=== PATIENT | male | born 1950 | race Caucasian/White ===

== ENCOUNTER 2019-11-10 11:18 | Inpatient (IN) | payer MEDICARE ==
[~2019-11-10] VITALS: Ht 188 cm; Wt 84.0 kg
[2019-11-10] MEDS ORDERED: diatr meglu/diatrizoate 30ml oral sol.-(3 dose) bottle PO SCH (11:35)
[2019-11-10] MEDS ORDERED: normal saline 1000ML IV soln IVB ONE (11:35)
[2019-11-10] MEDS ORDERED: ondansetron/PF 4mg/2ml inj IV ONE (11:35)
[2019-11-10] MEDS: morphine 4 MG/ML inj SYRINge IV PRN ×2 (12:09→18:08)
[2019-11-10 12:14] LABS: BASOPHILS # (AUTO) 0.1 X10'3 (0-0.2); BASOPHILS % (AUTO) 0.6 % (0-1); EOSINOPHILS # (AUTO) 0.1 X10'3 (0-0.9); EOSINOPHILS % (AUTO) 0.7 % (0-6); HEMATOCRIT 42.4 % (42.0-52.0); HEMOGLOBIN 14.7 g/dl (14.0-17.9); LYMPHOCYTES # (AUTO) 1.2 X10'3 (1.1-4.8); LYMPHOCYTES % (AUTO) 10.9 % (21-51); MEAN CORPUSCULAR HEMOGLOBIN 29.6 PG (27.0-31.0); MEAN CORPUSCULAR HGB CONC 34.7 g/dL (33.0-36.5); MEAN CORPUSCULAR VOLUME 85.2 FL (78-98); MEAN PLATELET VOLUME 8.8 FL (7.4-10.4); MONOCYTES # (AUTO) 0.9 X10'3 (0-0.9); MONOCYTES % (AUTO) 8.3 % (2-12); NEUTROPHILS # (AUTO) 8.7 X10'3 (1.8-7.7); NEUTROPHILS % (AUTO) 79.5 % (42-75); PLATELET COUNT 249 X10'3 (140-440); RED BLOOD COUNT 4.98 X10'6 (4.70-6.10); RED CELL DISTRIBUTION WIDTH 13.3 % (11.5-14.5); WHITE BLOOD COUNT 10.9 X10'3 (4.5-11.0)
--- NOTE | 2019-11-10 12:26 | NUR ---
Per pt, he has had oral gastrografin previously without allergic reaction.
[2019-11-10 12:28] LABS: ALANINE AMINOTRANSFERASE 50 U/L (12-78); ALBUMIN 3.8 G/DL (3.4-5.0); ALBUMIN/GLOBULIN RATIO 0.9 (1.1-1.5); ALKALINE PHOSPHATASE 96 IU/L (46-116); ANION GAP 8 (8-16); ASPARTATE AMINO TRANSFERASE 28 U/L (10-37); BLOOD UREA NITROGEN 13 MG/DL (7-18); BUN/CREATININE RATIO 14.9 (5.4-32.0); CALCIUM 9.1 MG/DL (8.5-10.1); CHLORIDE 100 MMOL/L (99-107); CREATININE 0.87 MG/DL (0.60-1.10); GLUCOSE 157 MG/DL (70-104); LIPASE 164 U/L (73-393); SODIUM 136 MMOL/L (135-145); TOTAL CARBON DIOXIDE 27.9 MMOL/L (24-32); eGFR 87 ML/MIN
[2019-11-10] MEDS: diatr meglu/diatrizoate 30ml oral sol.-(3 dose) bottle PO SCH ×3 (14:49→16:37)
--- NOTE | 2019-11-10 14:50 | NUR ---
PT GIVEN 1ST DOSE GASTROVIEW VIA NGT
[2019-11-10] MEDS ORDERED: NO HOME MEDS (15:13)
[2019-11-10] MEDS ORDERED: potassium Cl 20 mEq SR tablet PO PRN ×2 (16:35)
[2019-11-10] MEDS ORDERED: bisacodyl 10mg suppository rectal RC PRN (16:35)
[2019-11-10] MEDS ORDERED: acetaminophen 650mg rectal suppository RC PRN (16:35)
[2019-11-10] MEDS ORDERED: potassium CL 10mEq/100ml bag 100 ML IV PRN ×2 (16:35)
[2019-11-10] MEDS ORDERED: acetaminophen 325mg tablet PO PRN (16:35)
[2019-11-10] MEDS ORDERED: magnesium 2GM in 50ml NS 50 ML IV PRN (16:35)
[2019-11-10] MEDS ORDERED: HYDROmorphone inj. 0.5 MG/0.5 ML DISP.SYRIN IV PRN (16:35)
[2019-11-10] MEDS ORDERED: magnesium Cl slow-release 64mg tablet PO PRN (16:35)
[2019-11-10] MEDS ORDERED: magnesium 4gm in 100ml NS 100 ML IV PRN (16:35)
[2019-11-10] MEDS ORDERED: magnesium hydroxide 30ml (MOM) UD suspension PO PRN (16:35)
[2019-11-10] MEDS ORDERED: metoclopramide 5 mg/ml inj IV PRN (16:35)
[2019-11-10] MEDS ORDERED: ondansetron/PF 4mg/2ml inj IV PRN (16:35)
[2019-11-10] MEDS ORDERED: mag hydrox/Alum hydrox/simeth 30ml oral suspension PO PRN (16:35)
[2019-11-10] MEDS ORDERED: iohexol 300mg/ml 100ml inj. ONE (16:49)
[2019-11-10] MEDS ORDERED: diatrozoate meglu/diatrozoate sod (37% iodine) 120ML oral solution PO ONE (17:20)
[2019-11-10] MEDS ORDERED: diatr meglu/diatrizoate 30ml oral sol.-(3 dose) bottle PO ONE (17:30)
--- NOTE | 2019-11-10 17:36 | NUR ---
Pt. To CT
[2019-11-10 18:00] VITALS: BP 147/86
[2019-11-10] MEDS: pantoprazole 40 MG vial IV SCH (18:07)
[2019-11-10] MEDS: normal saline 1000ml 1,000 ML IV SCH (18:07)
[2019-11-10] MEDS: methylnaltrexone br 12mg/0.6ml inj***SubQ only SQ SCH (18:41)
[2019-11-10] MEDS: K and/or MAG REPLACEMENT MC SCH (20:00)
[2019-11-11] VITALS: BP 128/74
[2019-11-11] MEDS: HYDROmorphone 1 mg/ml syringe IV PRN ×3 (02:31→16:16)
[2019-11-11] MEDS: normal saline 1000ml 1,000 ML IV SCH ×3 (02:32→14:58)
[2019-11-11 05:22] LABS: BASOPHILS # (AUTO) 0.1 X10'3 (0-0.2); BASOPHILS % (AUTO) 0.6 % (0-1); EOSINOPHILS # (AUTO) 0.3 X10'3 (0-0.9); EOSINOPHILS % (AUTO) 3.7 % (0-6); HEMATOCRIT 38.7 % (42.0-52.0); HEMOGLOBIN 13.2 g/dl (14.0-17.9); LYMPHOCYTES # (AUTO) 1.5 X10'3 (1.1-4.8); LYMPHOCYTES % (AUTO) 17.2 % (21-51); MEAN CORPUSCULAR HEMOGLOBIN 29.1 PG (27.0-31.0); MEAN CORPUSCULAR HGB CONC 34.1 g/dL (33.0-36.5); MEAN CORPUSCULAR VOLUME 85.4 FL (78-98); MEAN PLATELET VOLUME 8.8 FL (7.4-10.4); MONOCYTES % (AUTO) 11.1 % (2-12); NEUTROPHILS # (AUTO) 5.9 X10'3 (1.8-7.7); NEUTROPHILS % (AUTO) 67.4 % (42-75); PLATELET COUNT 229 X10'3 (140-440); RED BLOOD COUNT 4.53 X10'6 (4.70-6.10); WHITE BLOOD COUNT 8.8 X10'3 (4.5-11.0)
--- NOTE | 2019-11-11 06:25 | NUR ---
Problems reprioritized. Patient report given, questions answered & plan of care reviewed with Christina PAK.
[2019-11-11 06:44] LABS: ALANINE AMINOTRANSFERASE 65 U/L (12-78); ALBUMIN 3.1 G/DL (3.4-5.0); ALBUMIN/GLOBULIN RATIO 0.9 (1.1-1.5); ALKALINE PHOSPHATASE 84 IU/L (46-116); ANION GAP 6 (8-16); ASPARTATE AMINO TRANSFERASE 40 U/L (10-37); BILIRUBIN,TOTAL 2.3 MG/DL (0.1-1.0); BLOOD UREA NITROGEN 14 MG/DL (7-18); BUN/CREATININE RATIO 17.7 (5.4-32.0); CALCIUM 8.3 MG/DL (8.5-10.1); CHLORIDE 104 MMOL/L (99-107); CREATININE 0.79 MG/DL (0.60-1.10); GLUCOSE 107 MG/DL (70-104); MAGNESIUM 1.7 MG/DL (1.5-2.4); PHOSPHORUS 3.2 MG/DL (2.3-4.5); SODIUM 139 MMOL/L (135-145); TOTAL PROTEIN 6.5 G/DL (6.4-8.2); eGFR > 90 ML/MIN
--- NOTE | 2019-11-11 06:47 | NUR ---
Patient in room [facility]. I have received report from Wellington PAK and had the opportunity to ask questions and assume patient care.
[2019-11-11 07:32] VITALS: BP 137/78
[2019-11-11] MEDS: K and/or MAG REPLACEMENT MC SCH ×2 (08:00→20:00)
[2019-11-11] MEDS: pantoprazole 40 MG vial IV SCH (08:07)
[2019-11-11 09:51] LABS: LIPASE 199 U/L (73-393)
[2019-11-11 11:00] VITALS: BP 131/85
--- NOTE | 2019-11-11 18:16 | NUR ---
Received report from PASHA Vasquez. Patient is awake and alert on room air, in no apparent distress. Call light and items of frequent use within reach. Will continue to monitor.
--- NOTE | 2019-11-11 18:28 | NUR ---
patient seen by JUAN R Eric dc patient commenced on clear liquid diet tolerated. Up and about ultrasound of gallbladder completed. Report given to Imelda PAK
[2019-11-11 19:00] VITALS: BP 134/79
[2019-11-12] VITALS: BP 138/81
[2019-11-12] MEDS: normal saline 1000ml 1,000 ML IV SCH ×2 (02:38→13:43)
[2019-11-12 04:51] LABS: BASOPHILS % (AUTO) 0.2 % (0-1); EOSINOPHILS # (AUTO) 0.1 X10'3 (0-0.9); EOSINOPHILS % (AUTO) 1.4 % (0-6); HEMATOCRIT 38.3 % (42.0-52.0); HEMOGLOBIN 13.1 g/dl (14.0-17.9); LYMPHOCYTES # (AUTO) 0.8 X10'3 (1.1-4.8); LYMPHOCYTES % (AUTO) 8.6 % (21-51); MEAN CORPUSCULAR HEMOGLOBIN 29.2 PG (27.0-31.0); MEAN CORPUSCULAR HGB CONC 34.3 g/dL (33.0-36.5); MEAN CORPUSCULAR VOLUME 85.3 FL (78-98); MEAN PLATELET VOLUME 8.5 FL (7.4-10.4); MONOCYTES # (AUTO) 0.9 X10'3 (0-0.9); MONOCYTES % (AUTO) 9.7 % (2-12); NEUTROPHILS # (AUTO) 7.5 X10'3 (1.8-7.7); NEUTROPHILS % (AUTO) 80.1 % (42-75); PLATELET COUNT 243 X10'3 (140-440); RED BLOOD COUNT 4.48 X10'6 (4.70-6.10); RED CELL DISTRIBUTION WIDTH 13.4 % (11.5-14.5); WHITE BLOOD COUNT 9.4 X10'3 (4.5-11.0)
[2019-11-12 05:12] LABS: ALANINE AMINOTRANSFERASE 64 U/L (12-78); ALBUMIN 3.2 G/DL (3.4-5.0); ALBUMIN/GLOBULIN RATIO 0.9 (1.1-1.5); ALKALINE PHOSPHATASE 86 IU/L (46-116); ANION GAP 8 (8-16); ASPARTATE AMINO TRANSFERASE 32 U/L (10-37); BLOOD UREA NITROGEN 13 MG/DL (7-18); BUN/CREATININE RATIO 16.5 (5.4-32.0); CALCIUM 8.3 MG/DL (8.5-10.1); CHLORIDE 102 MMOL/L (99-107); CREATININE 0.79 MG/DL (0.60-1.10); GLUCOSE 123 MG/DL (70-104); MAGNESIUM 1.8 MG/DL (1.5-2.4); PHOSPHORUS 2.8 MG/DL (2.3-4.5); POTASSIUM 3.7 MMOL/L (3.5-5.1); SODIUM 138 MMOL/L (135-145); TOTAL CARBON DIOXIDE 27.8 MMOL/L (24-32); TOTAL PROTEIN 6.7 G/DL (6.4-8.2); eGFR > 90 ML/MIN
--- NOTE | 2019-11-12 06:16 | NUR ---
Problems reprioritized. Patient report given, questions answered & plan of care reviewed with PASHA Vasquez.
--- NOTE | 2019-11-12 06:49 | NUR ---
Patient in room [facility]. I have received report from RAFAEL PAK and had the opportunity to ask questions and assume patient care.
[2019-11-12 07:00] VITALS: BP 147/87
[2019-11-12] MEDS: methylnaltrexone br 12mg/0.6ml inj***SubQ only SQ SCH (07:55)
[2019-11-12] MEDS: pantoprazole 40 MG vial IV SCH (07:55)
[2019-11-12] MEDS: K and/or MAG REPLACEMENT MC SCH ×2 (08:00→20:00)
[2019-11-12] MEDS: ketorolac tromethamine 15mg/ml inj. IV PRN ×2 (11:59→17:41)
[2019-11-12 17:10] VITALS: BP 166/90
--- NOTE | 2019-11-12 17:12 | NUR ---
patient seen by Dr Benitez and Dr regan commenced at this time on full liquid diet. Encouraged to ambulate, is passing gas and small BM . WILL CONTINUE TO MONITOR
--- NOTE | 2019-11-12 18:18 | NUR ---
Problems reprioritized. Patient report given, questions answered & plan of care reviewed with RAFAEL PAK.
[2019-11-12 18:20] LABS: BILIRUBIN,DIRECT 1.3 MG/DL (0-0.3)
[2019-11-12 20:00] VITALS: BP 143/77
[2019-11-13] VITALS: BP 149/75
[2019-11-13] MEDS: ketorolac tromethamine 15mg/ml inj. IV PRN ×2 (01:12→10:47)
[2019-11-13 05:41] LABS: BASOPHILS % (AUTO) 0.4 % (0-1); EOSINOPHILS # (AUTO) 0.4 X10'3 (0-0.9); EOSINOPHILS % (AUTO) 5.2 % (0-6); HEMATOCRIT 36.2 % (42.0-52.0); HEMOGLOBIN 12.3 g/dl (14.0-17.9); LYMPHOCYTES # (AUTO) 1.3 X10'3 (1.1-4.8); MEAN CORPUSCULAR HEMOGLOBIN 28.9 PG (27.0-31.0); MEAN CORPUSCULAR VOLUME 84.9 FL (78-98); MEAN PLATELET VOLUME 8.2 FL (7.4-10.4); MONOCYTES # (AUTO) 0.9 X10'3 (0-0.9); MONOCYTES % (AUTO) 13.7 % (2-12); NEUTROPHILS # (AUTO) 4.2 X10'3 (1.8-7.7); NEUTROPHILS % (AUTO) 61.7 % (42-75); PLATELET COUNT 228 X10'3 (140-440); RED BLOOD COUNT 4.26 X10'6 (4.70-6.10); RED CELL DISTRIBUTION WIDTH 12.9 % (11.5-14.5); WHITE BLOOD COUNT 6.8 X10'3 (4.5-11.0)
[2019-11-13 06:10] LABS: ALANINE AMINOTRANSFERASE 68 U/L (12-78); ALBUMIN 2.9 G/DL (3.4-5.0); ALBUMIN/GLOBULIN RATIO 0.9 (1.1-1.5); ALKALINE PHOSPHATASE 89 IU/L (46-116); ANION GAP 9 (8-16); ASPARTATE AMINO TRANSFERASE 45 U/L (10-37); BILIRUBIN,TOTAL 3.5 MG/DL (0.1-1.0); BLOOD UREA NITROGEN 13 MG/DL (7-18); BUN/CREATININE RATIO 16.3 (5.4-32.0); CHLORIDE 106 MMOL/L (99-107); GLUCOSE 98 MG/DL (70-104); MAGNESIUM 1.8 MG/DL (1.5-2.4); PHOSPHORUS 2.5 MG/DL (2.3-4.5); POTASSIUM 3.6 MMOL/L (3.5-5.1); SODIUM 141 MMOL/L (135-145); TOTAL CARBON DIOXIDE 26.3 MMOL/L (24-32); TOTAL PROTEIN 6.3 G/DL (6.4-8.2); eGFR > 90 ML/MIN
--- NOTE | 2019-11-13 06:24 | NUR ---
Problems reprioritized. Patient report given, questions answered & plan of care reviewed with PASHA Childress.
[2019-11-13 07:27] VITALS: BP 134/74
[2019-11-13] MEDS: K and/or MAG REPLACEMENT MC SCH (08:00)
[2019-11-13] MEDS: pantoprazole 40 MG vial IV SCH (08:13)
[2019-11-13] MEDS ORDERED: FLU VACC QS2019-20 36MOS UP/PF 60 MCG/0.5 ML SYRINGE IMVAC ONE (10:00)
[2019-11-13] MEDS ORDERED: pneumococcal 23-VAL P-sac vacc 25 mcg/0.5ml vial IMVAC ONE (10:00)
[2019-11-13 11:00] VITALS: BP 125/78
[2019-11-13] MEDS ORDERED: ACET-812 PO (12:23)
[2019-11-13] MEDS ORDERED: IBUP-24 PO (12:23)
--- NOTE | 2019-11-13 12:57 | NUR ---
TC from dietary: Pt reports concerns w/ diet at home and would like to see RD. Pt s/p recent R inguinal hernia repair found to have ileus which is now resolving per MD. Pt having BM's and advanced to full liquids as well as passing gas. Pt seen by FELIZ for written/verbal high protein/low-residue diet eds for initial post-op diet guidelines. FELIZ reviewed soluble fiber options and encouraged pt to d/w MD regarding opioid antagonist IF taking opioids at home to ensure optimal bowel regularity post-op. Addendum: 11/13/19 at [address] Amended: Links added.
--- NOTE | 2019-11-13 13:45 | NUR ---
Pt discharged home per Dr Harmon. Dr Green notified and agrees with discharge says patient does not need to wait to be seen by him since discharge is in by Dr Harmon. Pt instructed by Dr Harmon to follow up as already planned and they will f/u outpatient with increased bilirubin levels and to call Dr Harmon if worsening yellowing of eyes or skin happens. IV taken out, all belongings taken from room. Pt ate regular food prior to discharge. Passing stool.
--- NOTE | 2019-11-15 13:58 | NUR ---
Case Management DC follow up: spoke to pt & spouse. pt states he is up and around, taking it easy. bloating has resolved, Denies dizzyness. Has loose stools, color brown, productive cough/thick green phlegm tinge blood/afebrile, denies chills, will watch for worsening symptoms/fever etc. has follow up appt w/PCP/Anurag 11/19/2019, agrees to call PCP to report symptoms before appt, rtn to hospital if conditions worsens ... drinking fluids to keep things loose. has follow up appt w/Dr Harmon 11/23/2019. verbalizes understanding of medications and why prescribed, taking as ordered. All needs met, questions answered at DC. No further questions at this time.
== END 2019-11-13 13:45 | disposition home or self-care (01) | DRG 394 ==
LOC: ER 11:19 → ED HOLD 16:32 → EDBEDREQ 18:31 → SUR 3N 19:21
PROVIDERS: ADMIT Family Medicine; ATTEND Family Medicine
PROC: BW211ZZ Computerized Tomography (CT Scan) of Abdomen and Pelvis using Low Osmolar Contrast (ICD-10-PCS; principal; 2019-11-10)
PROC: 3E02340 Introduction of Influenza Vaccine into Muscle, Percutaneous Approach (ICD-10-PCS; 2019-11-13)
PROC: 3E0234Z Introduction of Serum, Toxoid and Vaccine into Muscle, Percutaneous Approach (ICD-10-PCS; 2019-11-13)
DX: K91.89 Other postprocedural complications and disorders of digestive system (principal); K56.7 Ileus, unspecified; K91.870 Postprocedural hematoma of a digestive system organ or structure following a digestive system procedure; E78.5 Hyperlipidemia, unspecified; I10 Essential (primary) hypertension; N40.1 Benign prostatic hyperplasia with lower urinary tract symptoms; E80.6 Other disorders of bilirubin metabolism; Z51.5 Encounter for palliative care; R33.8 Other retention of urine; Y83.8 Other surgical procedures as the cause of abnormal reaction of the patient, or of later complication, without mention of misadventure at the time of the procedure; Y82.8 Other medical devices associated with adverse incidents; Z79.899 Other long term (current) drug therapy; Z23 Encounter for immunization
CPT/HCPCS: 36415; 74177; 76700; 80053; 82248; 83605; 83690; 83735; 84100; 85025; 87081; 90732; 93005; 96374; 99285; C9113; G0378; J1170; J1885; J2212; J2270; J2405; J7030; Q2037; Q9963; Q9967